=== PATIENT | male | born 1985 | race Caucasian/White ===

== ENCOUNTER 2017-07-06 08:49 | Emergency (ER) | payer BC, OTHER ==
[2017-07-06 09:20] VITALS: BP 134/77
== END 2017-07-06 09:53 | disposition home or self-care (01) ==
LOC: UCCORT 08:49
DX: M54.9 Dorsalgia, unspecified (principal); V49.60XA Unspecified car occupant injured in collision with unspecified motor vehicles in traffic accident, initial encounter; Z87.891 Personal history of nicotine dependence
CPT/HCPCS: 99201; G0463

== ENCOUNTER 2019-02-06 16:25 | Emergency (ER) | payer BC, OTHER ==
[2019-02-06 17:45] VITALS: BP 149/84
--- NOTE | 2019-02-06 18:09 | UC ---
Throat Pain/Nasal Jack HPI - HPI Summary HPI Summary: 33-year-old male presents with 7-10 day history of nasal congestion, green nasal discharge, sinus pressure, sore throat, and occasionally productive cough. States over the last 2-3 days has developed some bilateral eye redness and waking with his eyes crusted shut each morning. States his symptoms have progressively worsened over the last 2-3 days swelling. Denies fever, chills, ear pain, dysphagia, chest pain, or shortness of breath. - History of Current Complaint Chief Complaint: UCRespiratory Stated Complaint: ST, B/L EYE COMPLAINT Time Seen by Provider: 02/06/19 17:49 Hx Obtained From: Patient Pain Intensity: 4 - Allergies/Home Medications Allergies/Adverse Reactions: Allergies Allergy/AdvReac Type Severity Reaction Status Date / Time No Known Allergies Allergy Verified 02/06/19 17:45 PMH/Surg Hx/FS Hx/Imm Hx Previously Healthy: Yes - Denies significant PMH - Surgical History Surgical History: Yes Surgery Procedure, Year, and Place: Benign Fibrous Aneurysmal Hisitocitoma, 2010 2011 - Family History Known Family History: Positive: Non-Contributory - Social History Occupation: Employed Part-time Lives: With Family Alcohol Use: Daily Alcohol Amount: 2 per night Substance Use Type: None Smoking Status (MU): Never Smoked Tobacco Review of Systems All Other Systems Reviewed And Are Negative: Yes Constitutional: Negative: Fever, Chills Eyes: Positive: Drainage, Eye Redness. Negative: Blurred Vision, Diplopia, Photophobia ENT: Positive: Sore Throat, Nasal Discharge, Sinus Congestion, Sinus Pain/ Tenderness. Negative: Ear Ache Respiratory: Positive: Cough. Negative: Shortness Of Breath Cardiovascular: Negative: Palpitations, Chest Pain Gastrointestinal: Negative: Abdominal Pain, Vomiting, Diarrhea, Nausea Genitourinary: Positive: Negative Neurovascular: Positive: Decreased Sensation Neurological: Positive: Negative Is Patient Immunocompromised?: No Physical Exam - Summary Physical Exam Summary: GENERAL APPEARANCE: Well developed, well nourished, alert and cooperative, and appears to be in no acute distress. EYES: Mild bilateral conjunctival erythema. No drainage. EARS: External auditory canals and tympanic membranes clear, hearing grossly intact. NOSE: Moderate nasal congestion. No nasal discharge. Maxillary sinus tenderness. THROAT: Pharyngeal cobblestoning. No tonsilar inflammation, swelling, exudate, or lesions. Uvula midline. Oral cavity normal. Teeth and gingiva in good general condition. NECK: Neck supple, non-tender without lymphadenopathy. CARDIAC: Normal S1 and S2. No S3, S4 or murmurs. Rhythm is regular. There is no peripheral edema, cyanosis or pallor. Extremities are warm and well perfused. Capillary refill is less than 2 seconds. Peripheral pulses intact. LUNGS: Clear to auscultation without rales, rhonchi, wheezing or diminished breath sounds. Nonproductive cough. ABDOMEN: Positive bowel sounds. Soft, nondistended, nontender. No guarding or rebound. No masses or hepatosplenomegally. MUSKULOSKELETAL: ROM intact to all extremities. No joint erythema or tenderness. Normal muscular development. Normal gait. SKIN: Skin normal color, texture and turgor with no lesions or eruptions. Triage Information Reviewed: Yes Vital Signs: Initial Vital Signs Temp 98.1 F 02/06/19 17:42 Pulse 50 02/06/19 17:42 Resp 16 02/06/19 17:42 BP 149/84 02/06/19 17:42 Pulse Ox 99 02/06/19 17:42 Vital Signs Reviewed: Yes Throat Pain/Nasal Course/Dx - Course Course Of Treatment: 33-year-old male presents with 7-10 day history of nasal congestion, green nasal discharge, sinus pressure, sore throat, and occasionally productive cough. States over the last 2-3 days has developed some bilateral eye redness and waking with his eyes crusted shut each morning. States his symptoms have progressively worsened over the last 2-3 days swelling. Denies fever, chills, ear pain, dysphagia, chest pain, or shortness of breath. Afebrile. Hypertensive otherwise vital signs stable. Exam was remarkable for moderate bilateral conjunctival erythema without discharge, nasal congestion, maxillary sinus tenderness, pharyngeal cobblestoning, and a nonproductive cough. Considering the duration and worsening of symptoms will treat him for an acute sinusitis with Augmentin 875 mg twice a day 10 days, as well as symptomatic treatment including fluticasone nasal spray, saline rinses, [id number] decongestant, and Tessalon Perles 1 capsule every 8 hours as needed for cough. He is to follow-up with his primary care provider in 3-5 days if symptoms are not improving. Anticipatory guidance and warning symptoms are reviewed with the patient. Verbalizes understanding and agrees with plan of care. - Differential Dx/Diagnosis Differential Diagnosis/HQI/PQRI: Mononucleosis, Pharyngitis, URI, Other - Conjunctivitis Provider Diagnosis: Acute sinusitis, Bilateral conjunctivitis Discharge - Sign-Out/Discharge Documenting (check all that apply): Patient Departure All imaging exams completed and their final reports reviewed: No Studies - Discharge Plan Condition: Stable Disposition: HOME Prescriptions: Amoxicillin/Clavulanate TAB* [Augmentin TAB 875*] 875 mg PO BID #20 tab Benzonatate CAP* [Tessalon 100 MG CAP*] 100 mg PO TID PRN #21 cap PRN Reason: Cough Fluticasone NASAL SPRAY 50MCG* [Flonase NASAL SPRAY 50MCG*] 2 spray BOTH NARES DAILY #1 btl Patient Education Materials: Sinusitis (ED), Conjunctivitis (ED) Referrals: Bobby Boss DO [Primary Care Provider] - 3 Days Additional Instructions: Your history and exam are consistent with a sinus infection with conjunctivitis of both eyes. Considering the duration and worsening of your symptoms we will start you on an antibiotic. This will treat for both infections. Start Augmentin 875 mg 1 tablet twice a day for 10 days. Take with food to avoid upset stomach. Be sure to complete the entire course even if feeing better. Use a saline rinse kit such as Neti Pot or NeilMed at least twice a day to help thin secretions and promote drainage of the sinuses. Use fluticasone (Flonase) nasal spray 2 sprays each nostril once daily. Use an over the counter decongestant such as Sudafed according to directions to help with congestion. Use Tessalon Perles 1 capsule every 8 hours as needed for cough. Take over the counter acetaminophen (Tylenol) or ibuprofen (Advil, Motrin) according to directions as needed for pain or fever. Follow up with your primary care provider in 3-5 days if symptoms persist. Your blood pressure was elevated in the clinic today. It is recommended that you have this rechecked by your primary care provider within 4 weeks. Seek immediate medical attention in the emergency room if you have fever greater than 100.5 F despite taking acetaminophen or ibuprofen, have chest pain , difficulty breathing, are unable to swallow, or have any worsening of symptoms. - Billing Disposition and Condition Condition: STABLE Disposition: Home
== END 2019-02-06 18:28 | disposition home or self-care (01) ==
LOC: UCCORT 16:25
DX: J01.90 Acute sinusitis, unspecified (principal); H10.33 Unspecified acute conjunctivitis, bilateral
CPT/HCPCS: 87651; 99212; G0463